=== PATIENT | female | born 2000 | race Caucasian/White ===

== ENCOUNTER 2021-09-29 06:31 | Emergency (ER) | payer MEDICAID ==
[~2021-09-29] VITALS: Ht 165.1 cm; Wt 56.4 kg
[2021-09-29] MEDS ORDERED: ONDANSETRON HCL 4MG/2ML INJ IV ONE (07:45)
[2021-09-29 07:58] LABS: BASOPHILS % 0.4 % (0.0-2.0); EOSINOPHILS % 1.1 % (0.0-5.0); HEMATOCRIT. 38.1 % (36.0-48.0); HEMOGLOBIN. 12.6 g/dL (12.0-16.0); LYMPHOCYTES % 9.5 % (20.0-50.0); MEAN CORPUSCULAR HEMOGLOBIN 27.2 pg (28.0-32.0); MEAN CORPUSCULAR VOLUME 82.1 fL (81.0-99.0); MONOCYTES % 7.8 % (2.0-8.0); NEUTROPHILS % 81.2 % (40.0-76.0); PLATELET 259 x1000/uL (130-400); RED BLOOD CELL COUNT 4.64 mill/uL (4.2-5.4); RED CELL DISTRIBUTION WIDTH 14.4 % (11.6-14.6)
[2021-09-29] MEDS ORDERED: MORPHINE SULFATE 4 MG/ML CPJ (NOT FOR IM USE) IV ONE ×3 (08:00→10:15)
[2021-09-29 08:03] LABS: CLARITY URINE TURBID (CLEAR); COLOR URINE YELLOW (YELLOW); KETONES URINE 1+ (NEGATIVE); LEUKOCYTE ESTERASE URINE 2+ (NEGATIVE); NITRITE URINE NEGATIVE (NEGATIVE); OCCULT BLOOD URINE 2+ (NEGATIVE); PH URINE 5.5 (4.5-8.0); PROTEIN URINE 2+ (NEGATIVE); UROBILINOGEN URINE 0.2 E.U./dL (0.2-1.0)
[2021-09-29 08:09] LABS: CHLORIDE 109 mEq/L (98-107)
[2021-09-29 08:20] LABS: B-HCG QUANTITATIVE < 1 mIU/mL (<3)
[2021-09-29] MEDS ORDERED: NITR100C PO ×3 (09:18→11:36)
[2021-09-29] MEDS ORDERED: OXYC-100 PO ×3 (09:21→11:36)
[2021-09-29] MEDS ORDERED: ACETAMINOPHEN 325MG TABLET PO ONE (09:45)
[2021-09-29] MEDS ORDERED: ONDA4TAB50 PO (11:36)
[2021-09-29 12:17] VITALS: BP 120/71
== END 2021-09-29 12:18 | disposition home or self-care (01) ==
LOC: ER 06:31
DX: N20.0 Calculus of kidney (principal); N39.0 Urinary tract infection, site not specified; K72.90 Hepatic failure, unspecified without coma
CPT/HCPCS: 36415; 74176; 80053; 81003; 84702; 85025; 86850; 86900; 86901; 87086; 96374; 96375; 96376; 99284; J2270; J2405

== ENCOUNTER 2021-10-04 18:51 | Emergency (ER) | payer MEDICAID ==
[~2021-10-04] VITALS: Ht 165.1 cm; Wt 59.0 kg
[~2021-10-04 18:51] MED LIST: NITR100C PO; ONDA4TAB50 PO; OXYC-100 PO
[2021-10-04 18:58] VITALS: BP 99/77
== END 2021-10-04 22:29 | disposition left against medical advice (07) ==
LOC: ER 18:51
DX: Z53.21 Procedure and treatment not carried out due to patient leaving prior to being seen by health care provider (principal)